=== PATIENT | female | born 1965 | race Caucasian/White ===

== ENCOUNTER 2017-02-02 10:37 | Emergency (ER) | payer MEDICAID, OTHER ==
--- NOTE | 2017-02-02 11:05 | ED Physician Chart ---
ED Chief Complaint/HPI - Patient Information Date Seen:: 02/02/17 Time Seen:: 11:02 Chief Complaint:: Abdominal pain History of Present Illness:: 51 yo female had a sudden onset of right quadrant abdominal pain 3 hours ago, with nausea and vomiting. No diarrhea. The pain was sharp pain, 10/10, also radiating to the right back. She had fever. ED Review of Systems - Review of Systems General/Constitutional: Fever, No chills Skin: No skin lesions Head: Headache Eyes: No loss of vision ENT: No earache Neck: No neck pain Cardio Vascular: No chest pain Pulmonary: SOB GI: Nausea, Vomiting G/U: No dysuria Musculoskeletal: No bone or joint pain Psychiatric: No prior psych history ED Past Medical History - Past Medical History Past Medical History: No significant medical hx Social History: Non Smoker, No Alcohol, No Drug Use Surgical History: Cholecystectomy (17 years ago), (x 3) Family Medical History - Family Member Mother History Unknown: Yes ED Physical Exam - Physical Examination General/Constitutional: Awake, Alert Head: Atraumatic Eyes: PERRL, EOMI Skin: No skin lesions ENMT: Nasal exam nl Neck: Full ROM w/o pain Cardio Vascular: RRR, No murmur, gallop, rubs, NL S1 S2 Other GI comments:: RLQ tenderness Other comments:: Right CVA mild percussion tenderness, left CVA no percussion tenderness Extremities: normal strength in all extremities Neuro/Psych: No focal deficits ED Labs/Radiology/EKG Results - Radiology Results Results: CT abdomen wo contrast: mild right hydronephrosis with right UV junction 3 mm stone. Right renal pelvis stone. ED Assessment - Assessment General Assessment: 51 yo female right kidney stone and hydronephrosis. Critical Care Time: 50 min Excludes all billable procedures: Yes This condition life threatening/high prob of deterioration: No Assessment/Comments:: CBC, CMP, PT/PTT, CXR, EKG CT abdomen Pain control (morphine, toradol) Zofran NS IV bolus Admitted to outside hospital with urology consult ED Septic Shock - . Is Septic Shock (SBP<90, OR Lactate>4 mmol\L) present?: No ED Reassessment (Disposition) - Reassessment Reassessment Condition:: Improved - Patient Disposition Discharge/Transfer:: Acute Care (other hosp) ED Discharge Plan - Patient Disposition Admit/Discharge/Transfer: TRANSFER TO ACUTE HOSP Condition at Disposition: Stable Instructions: Kidney Stones, [id number], Dehydration, Adult, [id number], Rehydration, Adult
[2017-02-02 11:10] LABS: % BASOPHILS 0.2 % (0.0-2.0); % EOSINOPHILS 2.7 % (0.0-5.0); % LYMPHOCYTES 28.6 % (20.0-50.0); % MONOCYTES 5.2 % (2.0-10.0); % NEUTROPHILS 63.3 % (40.0-80.0); HEMATOCRIT 40.4 % (41.0-60); HEMOGLOBIN 13.6 gm/dL (12-16); MEAN CELL VOLUME 90.2 fl (81-100); MEAN CORPUSCULAR HEMOGLOBIN 30.4 pg (27.0-31.0); MEAN CORPUSCULAR HGB CONC 33.7 pg (28.0-36.0); MEAN PLATELET VOLUME 8.6 fl; NEUTROPHILE ABSOLUTE 6.6 Th/cmm (1.8-8.0); PLATELET COUNT 232 Th/cmm (150-400); RED BLOOD COUNT 4.48 Mil/cmm (3.80-5.10); RED CELL DISTRIBUTION WIDTH 12.4 % (11.5-20.0); WHITE BLOOD COUNT 10.3 Th/cmm (4.8-10.8)
[2017-02-02] MEDS ORDERED: Morphine Sulfate 2 mg/mL 1mL Syr ONE ×2 (11:10→11:43)
[2017-02-02] MEDS ORDERED: Morphine Sulfate 2 mg/mL 1mL Syr IVP STA (11:16)
[2017-02-02 11:25] LABS: INR 1.01 (0.5-1.4); PROTHROMBIN TIME (TEST) 10.5 SECONDS (9.5-11.5)
[2017-02-02 11:33] LABS: ALB/GLOB RATIO 1.4 (1.0-1.8); ALKALINE PHOSPHATASE 46 U/L (34-104); BILIRUBIN,TOTAL 0.6 mg/dL (0.3-1.0); BUN - UREA NITROGEN 10 mg/dL (7-25); BUN/CREATININE RATIO 16.7; CALCIUM SERUM 9.5 mg/dL (8.6-10.3); CARBON DIOXIDE 25.5 mEq/L (21.0-31.0); CHLORIDE 103 mEq/L (98-107); CREATININE - SERUM 0.6 mg/dL (0.6-1.2); GLUCOSE 108 mg/dL (70-105); POTASSIUM SERUM 3.5 mEq/L (3.5-5.1); SGOT 10 U/L (13-39); SGPT/ALT 9 U/L (7-52); SODIUM SERUM 134 mEq/L (136-145)
[2017-02-02 11:34] LABS: CHOLESTEROL 161 mg/dL (<200); TRIGLYCERIDES 90 mg/dL (<150)
--- NOTE | 2017-02-02 11:39 | Diagnostic Imaging Report ---
Portable chest x-ray Time: 1124 hours History: Pneumonia Allowing for portable technique the heart size is normal. No focal pulmonary parenchymal processes. No hilar or mediastinal abnormalities. Impression: No acute abnormalities.
[2017-02-02 12:00] LABS: AMYLASE SERUM 49 U/L (29-103); LIPASE 14 U/L (11-82)
--- NOTE | 2017-02-02 12:01 | Diagnostic Imaging Report ---
Exam: CT examination of the pelvis HISTORY: Right lower quadrant abdominal pain appendicitis Total DLP equals 351 CTDI equals 7.8 Findings: Multiple sections of the abdomen pelvis obtained from lower thorax to pubic symphysis without the administration of oral or intravenous contrast material. No prior studies available comparison. The study demonstrates normal aeration of lung parenchyma the bases. The liver parenchyma and spleen are normal. There is evidence of previous cholecystectomy. The pancreas poorly visualized. Adrenal glands are normal. There is evidence of mild right-sided hydronephrosis. There is evidence for a 3 mm calculus in the right ureterovesical junction. Nonobstructing small left calculus is noted in the midportion of right renal pelvis. The appendix is intact. There is no evidence of appendicitis The urinary bladder distended. The uterus is enlarged fibroid infiltration cannot be excluded clinical correlation ultrasound examination might helpful. Bony structures demonstrate no evidence for lytic or blastic lesions. IMPRESSION: 1. Right-sided hydronephrosis with a 3 mm calculus in the right ureterovesical junction. 2. Status post cholecystectomy. 3. Normal appendix.
[2017-02-02 12:35] LABS: URINE BILIRUBIN NEGATIVE (NEGATIVE); URINE BLOOD NEGATIVE (NEGATIVE); URINE GLUCOSE (UA) NEGATIVE (NEGATIVE); URINE KETONE 15 mg/dL (NEGATIVE); URINE PH 6.5 (4.6 - 8.0); URINE PROTEIN NEGATIVE (NEGATIVE); URINE UROBILINOGEN 0.2 E.U./dL (0.2 - 1.0)
[2017-02-02 12:48] LABS: URINE COLOR YELLOW
[2017-02-02 12:49] LABS: URINE BACTERIA OCCASIONAL /hpf (NONE SEEN); URINE EPITHELIAL CELLS FEW /lpf (FEW); URINE RBC 0-2 /hpf (0-5)
[2017-02-02] MEDS ORDERED: Sodium Chloride 0.9% 1,000 ML IV ONE (14:12)
== END 2017-02-02 19:15 | disposition short-term general hospital (02) ==
LOC: ER 10:37
DX: N13.2 Hydronephrosis with renal and ureteral calculous obstruction (principal)
CPT/HCPCS: 99291; 74176; 96374; 96375; 96376; 93005; 71010; 36415; 85025; 85610; 81001; 82150; 83036; 84703; 83690; 80053; 80061; J2270 ×2; J1885 ×2; J2405 ×3; J7030; Z7502